=== PATIENT | female | born 1950 | race Caucasian/White ===

== ENCOUNTER 2017-04-19 20:57 | Emergency (ER) | payer MEDICARE ==
[~2017-04-19] VITALS: Ht 162.6 cm; Wt 76.6 kg
[~2017-04-19 20:57] MED LIST: ASPIRIN325 M1 OR; ZESTRIL10 MG OR
[2017-04-19 22:55] LABS: HEMATOCRIT 41.3 % (37.0-47.0); HEMOGLOBIN 14.3 g/dl (12.0-16.0); IMMATURE GRANULOCYTES 0.3 % (0.0-1.0); MEAN CELL VOLUME 93.9 fL CALC (80.0-100.0); MEAN CORPUSCULAR HGB 32.5 pG CALC (26.0-32.0); MEAN CORPUSCULAR HGB CONC 34.6 g/L CALC (32.0-36.0); NEUT# 5.55 thou/uL (2.00-7.15); RED BLOOD COUNT 4.4 mill/uL (4.20-5.60); RED CELL DISTRI WIDTH 13.1 % (11.5-15.5)
[2017-04-19 22:57] LABS: URINE BILIRUBIN - DIPSTICK NEGATIVE (NEGATIVE); URINE BLOOD DIPSTICK NEGATIVE (NEGATIVE); URINE CLARITY CLEAR; URINE COLOR YELLOW; URINE GLUCOSE - DIPSTICK 250 mg/dL (NEGATIVE); URINE KETONE NEGATIVE (NEGATIVE); URINE NITRITE - DIPSTICK NEGATIVE (Negative); URINE PH 6.5 (4.5-8.0); URINE PROTEIN - DIPSTICK NEGATIVE (NEG-TRACE); URINE SPECIFIC GRAVITY <=1.005; URINE UROBILINOGEN - DIPSTICK 0.2 E.U./dL (0.2)
[2017-04-19 23:02] LABS: URINE LEUK ESTERASE SMALL (NEGATIVE)
[2017-04-19 23:09] LABS: ALBUMIN 4.8 g/dL (3.2-5.0); ALKALINE PHOSPHATASE 96 u/l (38-126); ANION GAP 16 (6-22 (CALC)); BILIRUBIN, TOTAL 0.3 mg/dL (0.0-1.4); BUN 22 mg/dL (8-23); BUN/CREATININE RATIO 20 (12-20 (CALC)); CALCIUM 10.3 mg/dL (8.4-10.2); CARBON DIOXIDE 28 mmol/l (22-30); CHLORIDE 88 mmol/l (95-108); CREATININE 1.2 mg/dL (0.5-1.0); GFR 45 ML/MIN (>=60 (CALC)); GFR FOR AFR.AMER. 54 ML/MIN (>=60 (CALC)); GLUCOSE 199 mg/dL (82-115); POTASSIUM 4.6 mmol/l (3.5-5.1); SGOT/AST 26 u/l (9-36); SGPT/ALT 30 u/l (11-66); SODIUM 128 mmol/l (137-146); TOTAL PROTEIN 7.7 g/dL (6.3-8.2)
[2017-04-19 23:10] LABS: URINE RBC 0-2 RBC/hpf (0-5); URINE SQUAMOUS EPITHELIAL CELL FEW EPI/hpf (0-FEW)
[2017-04-19 23:21] LABS: MYOGLOBIN 55 ng/mL (0 - 62)
[2017-04-20] MEDS ORDERED: ANTIVERT PO (00:54)
[2017-04-20 01:07] VITALS: BP 166/77
== END 2017-04-20 01:00 | disposition home or self-care (01) ==
LOC: ED 20:57
PROVIDERS: Emergency Medicine
DX: R42 Dizziness and giddiness (principal); E87.1 Hypo-osmolality and hyponatremia; N28.9 Disorder of kidney and ureter, unspecified; E11.65 Type 2 diabetes mellitus with hyperglycemia; I10 Essential (primary) hypertension; M10.9 Gout, unspecified; F17.290 Nicotine dependence, other tobacco product, uncomplicated; R20.0 Anesthesia of skin; Z79.84 Long term (current) use of oral hypoglycemic drugs

== ENCOUNTER 2021-04-07 21:55 | Observation (INO) | payer MEDICARE, MEDICAID ==
[~2021-04-07] VITALS: Ht 162.6 cm; Wt 62.0 kg
[~2021-04-07 21:55] MED LIST changes: +ANTIVERT PO
--- NOTE | 2021-04-07 22:10 | NUR ---
PT AND FAMILY AMBULATE TO TX RM 10 W/OUT INCIDENT. PT MAINTAINS STEADY GAIT AND DENIES ANY DIFFICULTY WITH MOVING EXTREMITIES. PT STATES SHE HAS BEEN DIZZY "ON AND OFF" FOR MONTHS. PT STATES SHE THOUGHT HER B/S MAY BE LOW SO SHE HAD 2 GLASSES OF ORANGE JUICE. MD NOTIFIED AND AT BEDSIDE FOR EVALUATION.
--- NOTE | 2021-04-07 22:20 | NUR ---
PT REMAINS STABLE WITH RESTAURANT GENERAL MANAGER IN PLACE. ANSWERS ALL QUESTIONS WITH OUT INCIDENT
[2021-04-07 22:33] LABS: HEMATOCRIT 37.4 % (37.0-47.0); HEMOGLOBIN 12.8 g/dl (12.0-16.0); IMMATURE GRANULOCYTES 0.3 % (0.0-5.0); MEAN CELL VOLUME 96.1 fL CALC (80.0-100.0); MEAN CORPUSCULAR HGB 32.9 pG CALC (26.0-32.0); MEAN CORPUSCULAR HGB CONC 34.2 g/dL CAL (32.0-36.0); NEUT# 6.85 thou/uL (2.00-7.15); RED BLOOD COUNT 3.89 mill/uL (4.20-5.60); RED CELL DISTRI WIDTH 13.3 % (11.5-15.5)
[2021-04-07 22:54] LABS: ALBUMIN 4.6 g/dL (3.2-5.0); ALKALINE PHOSPHATASE 70 u/l (38-126); BUN 15 mg/dL (8-23); BUN/CREATININE RATIO 21 (12-20 (CALC)); CARBON DIOXIDE 28 mmol/l (22-30); CHLORIDE 83 mmol/l (95-108); CREATININE 0.7 mg/dL (0.5-1.0); GFR > 60 ML/MIN (>=60 (CALC)); GFR FOR AFR.AMER. > 60 ML/MIN (>=60 (CALC)); POTASSIUM 4.1 mmol/l (3.5-5.1); SGOT/AST 30 u/l (9-36); TOTAL PROTEIN 7.9 g/dL (6.3-8.2)
[2021-04-07 22:57] LABS: ANION GAP 15 (6-22 (CALC)); BILIRUBIN, TOTAL 0.6 mg/dL (0.0-1.4); SODIUM 122 mmol/l (137-146)
--- NOTE | 2021-04-07 23:01 | NUR ---
PATIENT RETURNED FROM CT SCAN. MEAL PPROVIDED.
[2021-04-07] MEDS ORDERED: NORVASC5 M1 PO (23:04)
[2021-04-07] MEDS ORDERED: GLIPIZIDE ER5 MG PO (23:05)
[2021-04-07 23:06] LABS: MYOGLOBIN 80 ng/mL (0 - 62)
[2021-04-07] MEDS ORDERED: ALLOPURINOL100 MG PO (23:06)
[2021-04-07] MEDS ORDERED: CRESTOR10 MG PO (23:07)
[2021-04-07] MEDS ORDERED: LEVOTHYROXINE25 MC1 PO (23:08)
[2021-04-07] MEDS ORDERED: LISINOP/HCTZ1 TA1 PO (23:09)
[2021-04-07] MEDS ORDERED: METFORMIN500 M2 PO (23:09)
[2021-04-07] MEDS ORDERED: POT CHLORIDE20 ME3 PO (23:10)
--- NOTE | 2021-04-08 00:16 | NUR ---
PATIENT AND FAMILY AT BEDSIDE AGREES WITH PLAN FOR ADMIT
--- NOTE | 2021-04-08 00:46 | NUR ---
KOJO TO CALL BACK TO ER FOR REPORT
--- NOTE | 2021-04-08 00:52 | NUR ---
TELEPHONE REPORT RECEIVED FROM Lenora COX RN IN ED. ROOM 279 PREPARED TO RECEIVE PATIENT.
--- NOTE | 2021-04-08 00:56 | NUR ---
REPORT GIVEN TO KOJO. PATIENT BEING TRANSPORTED TO FLOOR BY THIS RN
--- NOTE | 2021-04-08 01:07 | NUR ---
PT ARRIVES TO UNIT VIA , ACCOMPANIED BY Lenora COX RN @ 0846. PT MADE COMFORTABLE AND ORIENTED TO ROOM BY Royal NICHOLSON CNA. BASELINE VS OBTAINED BY Royal NICHOLSON CNA.
[2021-04-08 01:08] VITALS: BP 154/65
--- NOTE | 2021-04-08 01:30 | NUR ---
ADMISSION AND ASSESMENT COMPLETED. FINGERSTICK GLUCOSE OBTAINED BY Royal NICHOLSON CNA IS 77mg/dl. ORANGE JUICE AND NUTRIGRAIN BAR PROVIDED. EXTRA PILLOW PROVIDED PER PTS REQUEST. PT DENIES ANY FURTHER NEEDS AT THIS TIME WHEN ASKED. PT ABLE TO MAKE NEEDS KNOWN AND AGREES TO DO SO. PLAN OF CARE REVIEWED, VERBALIZES UNDERSTANDING. CALL CASTRO WITHIN REACH, PT AGREES TO CALL PRN. BED LOCKED IN LOW POSITION WITH BEDRAILS UP X2.
[2021-04-08 04:00] VITALS: BP 116/58
--- NOTE | 2021-04-08 05:02 | NUR ---
Edith ELIZONDO CHEMICAL PROCESSING SUPERVISOR AT BEDSIDE TO COLLECT AM LABS.
[2021-04-08 05:59] LABS: ANION GAP 11 (6-22 (CALC)); BUN 11 mg/dL (8-23); BUN/CREATININE RATIO 20 (12-20 (CALC)); CARBON DIOXIDE 28 mmol/l (22-30); CHLORIDE 92 mmol/l (95-108); CREATININE 0.6 mg/dL (0.5-1.0); GFR > 60 ML/MIN (>=60 (CALC)); GFR FOR AFR.AMER. > 60 ML/MIN (>=60 (CALC)); SODIUM 126 mmol/l (137-146)
--- NOTE | 2021-04-08 07:00 | NUR ---
RECIEVED REPORT FROM BHASKAR VARMA
[2021-04-08 07:10] VITALS: BP 127/52
--- NOTE | 2021-04-08 07:20 | NUR ---
PT RESTING IN SEMI FOWLERS POSITION. PT IS A/O X3. ASSESSMENT AND VITALS COMPLETED. BP 127/52, HR 64, O2 96% ON ROOM AIR. RESPIRATIONS ARE EVEN AND UNLABORED WITH NO DISTRESS NOTED. LUNG SOUNDS ARE CLEAR. HEART RHYTHM IS NORMAL. BOWEL SOUNDS ARE ACTIVE. RADIAL AND PEDAL PULSES STRONG. #20G IN LAC INFUSING WITH IVF PER ORDER, SITE REMAINS HEALTHY AND PATENT. SKIN INTACT. PT DENIES OF ANY PAINS OR DISCOMFORTS AT THIS TIME. PT REQUEST TO GO HOME TODAY. ALL SAFETY PRECAUTIONS ARE IN PLACE WITH CALL LIGHT IN REACH. WILL CONTINUE TO MONITOR.
[2021-04-08] MEDS ORDERED: GLIPIZIDE5 M2 PO (07:29)
--- NOTE | 2021-04-08 08:38 | NUR ---
REASSESSMENT OF GLUCOSE AFTER BREAKFAST RESULTING IN 143.
--- NOTE | 2021-04-08 09:11 | NUR ---
ASHLEY,ANRP AT BEDSIDE
[2021-04-08 09:26] LABS: URINE BILIRUBIN - DIPSTICK NEGATIVE (NEGATIVE); URINE BLOOD DIPSTICK NEGATIVE (NEGATIVE); URINE COLOR YELLOW; URINE GLUCOSE - DIPSTICK NEGATIVE (NEGATIVE); URINE KETONE NEGATIVE (NEGATIVE); URINE LEUK ESTERASE NEGATIVE (NEGATIVE); URINE PH 7.5 (4.5-8.0); URINE PROTEIN - DIPSTICK NEGATIVE (NEG-TRACE); URINE UROBILINOGEN - DIPSTICK 0.2 E.U./dL (0.2)
[2021-04-08 09:27] LABS: URINE NITRITE - DIPSTICK NEGATIVE (Negative)
[2021-04-08 09:40] VITALS: BP 128/59
--- NOTE | 2021-04-08 09:49 | NUR ---
GRANDDAUGHTER CALLED REQUESTING UPDATE. PASSCODE PROVIDED. ROLL TABLE OPERATOR INFORMED THAT PT IS SOMETIMES FORGETFUL.
--- NOTE | 2021-04-08 11:41 | NUR ---
PT SLEEPING IN LOW FOWLERS POSITION. RESPIRATIONS ARE EVEN AND UNLABORED WITH NO DISTRESS NOTED ON ROOM AIR.#20G IN LAC INFUSING WITH IVF PER ORDER, SITE REMAINS HEALTHY AND PATENT.NO SIGNS OF ANY PAINS OR DISCOMFORTS. ACCUCHECK REUSLTING IN 129. ALL SAFETY PRECAUTIONS ARE IN PLACE WITH CALL LIGHT IN REACH. WILL CONTINUE TO MONITOR.
--- NOTE | 2021-04-08 12:17 | NUR ---
DR TRACY AT BEDSIDE
--- NOTE | 2021-04-08 13:30 | NUR ---
VISITOR AT BEDSIDE
[2021-04-08 15:37] VITALS: BP 119/60
--- NOTE | 2021-04-08 16:07 | NUR ---
PT RESTING IN SEMI FOWLERS POSITION. RESPIRATIONS ARE EVEN AND UNLABORED WITH NO DISTRESS NOTED. #20G IN LAC INFUSING WITH IVF @80ML/HR, SITE REMAINS HEALTHY AND PATENT. PT DENIES OF ANY PAINS OR NEEDS AT THIS TIME. ALL SAFETY PRECAUTIONS ARE IN PLACE WITH CALL LIGHT IN REACH. WILL CONTINUE TO MONITOR.
[2021-04-08 19:35] VITALS: BP 126/69
--- NOTE | 2021-04-08 19:35 | NUR ---
PT AWAKE WITH LIGHTS ON TV OFF. NO S/O DISTRESS. ASSESSMENT COMPLETED AT THIS TIME, PT DENIES ANY OTHER NEEDS FOR COMFORT AT THIS TIME. ENCOURAGED HER TO CALL NEEDS ARISE, VERBALIZED UNDERSTANDING, CALL LIGHT W/IN REACH.
--- NOTE | 2021-04-08 21:15 | NUR ---
PT MEDICATED ORDERS PROVIDE, PT IS UP WALKING AROUND THE ROOM TRYING TO CLOSE BLINDS, ASSISTED MUCH POSSIBLE. PT DENIES ANY OTHER NEEDS AT THIS TIME. ENCOURAGED HER TO CALL NEEDS ARISE, VERBALIZED UNDERSTANDING.
[2021-04-09 04:00] VITALS: BP 123/71
--- NOTE | 2021-04-09 04:40 | NUR ---
LAB WAS JUST IN WITH PT, LEAVING ROOM NOW. PT AWAKE, DENIES ANY DISTRESSES OR NEEDS. IVF REPLENISHED AT THIS TIME. CALL LIGHT AT SIDE AND PT ENCOURAGED TO CALL NEEDS ARISE.
[2021-04-09 05:49] LABS: HEMATOCRIT 34.6 % (37.0-47.0); HEMOGLOBIN 11.7 g/dl (12.0-16.0); MEAN CELL VOLUME 96.6 fL CALC (80.0-100.0); MEAN CORPUSCULAR HGB 32.7 pG CALC (26.0-32.0); MEAN CORPUSCULAR HGB CONC 33.8 g/dL CAL (32.0-36.0); RED BLOOD COUNT 3.58 mill/uL (4.20-5.60); RED CELL DISTRI WIDTH 13.6 % (11.5-15.5)
[2021-04-09 06:00] LABS: ANION GAP 11 (6-22 (CALC)); BUN 15 mg/dL (8-23); BUN/CREATININE RATIO 29 (12-20 (CALC)); CARBON DIOXIDE 25 mmol/l (22-30); CHLORIDE 96 mmol/l (95-108); CREATININE 0.5 mg/dL (0.5-1.0); GFR > 60 ML/MIN (>=60 (CALC)); GFR FOR AFR.AMER. > 60 ML/MIN (>=60 (CALC)); MAGNESIUM 1.7 mg/dL (1.6-2.3); POTASSIUM 4.3 mmol/l (3.5-5.1); SODIUM 128 mmol/l (137-146)
--- NOTE | 2021-04-09 07:00 | NUR ---
RECIEVED REPORT FROM BHASKAR GAMBINO
[2021-04-09 07:24] VITALS: BP 128/63
--- NOTE | 2021-04-09 07:24 | NUR ---
PT RESTING IN SEMI FOWLERS POSITION. PT IS A/O X3. ASSESSMENT AND VITALS COMPLETED. BP 128/63, HR 69, O2 96% ON ROOM AIR. REPSIRATIONS ARE EVEN AND UNLABORED ON ROOM AIR. LUNG SOUNDS ARE CLEAR. HEART RHYTHM IS NORMAL. BOWEL SOUNDS ARE ACTIVE. #20G IN LAC INFUSING WITH IVF @80 ML/HR, SITE REMAINS HEALTHY AND PATENT. SKIN INTACT. PT DENIES OF ANY PAINS OR DISCOMFORTS. ALL SAFETY PRECAUTIONS ARE IN PLACE WITH CALL LIGHT IN REACH. ALL SAFETY PRECAUTIONS ARE IN PLACE WITH CALL LIGHT IN REACH. ENCOURAGED PT TO CALL FOR ASSISTNACE. WILL CONTINUE TO MONITOR.
[2021-04-09 08:43] VITALS: BP 128/63
[2021-04-09] MEDS ORDERED: COZAAR50 MG PO (09:18)
--- NOTE | 2021-04-09 09:40 | NUR ---
DR TRACY AT BEDSIDE
--- NOTE | 2021-04-09 10:36 | NUR ---
PT AND GRANDDAUGHTER EDUCATED ON D/C INSTRUCTIONS. BOTH VERBALIZED UNDERSTANDING. #20G LAC REMOVED WITH CATHATER STILL INTACT. PT TOLERARED WELL. PT AND GRANDAUGHTER EXPRESSED NO QUESTIONS OR CONCERNS. WILL CONTINUE TO MONITOR.
--- NOTE | 2021-04-09 10:49 | NUR ---
Discharge instructions given. Patient verbalizes understanding of same. Discharged in stable condition via Wheelchair to Home with staff. All belongings sent with pt. PT DC HOME VIA WHEELCHAIR ACCOMPAINED BY GIORGIO MORENO IN STABLE CONDITION. PT DC HOME WITH ALL BELONINGS AND DC INSTRUCTIONS.
== END 2021-04-09 10:44 | disposition home or self-care (01) ==
LOC: ED 21:55 → ED-I 23:16 → ED 23:29 → MS2 23:30
PROVIDERS: Family Medicine; Nurse Practitioner; ADMIT Internal Medicine; ATTEND Internal Medicine
DX: E87.1 Hypo-osmolality and hyponatremia (principal); E11.649 Type 2 diabetes mellitus with hypoglycemia without coma; I10 Essential (primary) hypertension; E03.9 Hypothyroidism, unspecified; E78.5 Hyperlipidemia, unspecified; M10.9 Gout, unspecified; Z79.84 Long term (current) use of oral hypoglycemic drugs; Z91.11 Patient's noncompliance with dietary regimen; Z87.891 Personal history of nicotine dependence; Z20.822 Contact with and (suspected) exposure to COVID-19
CPT/HCPCS: G0378; J1650

== ENCOUNTER 2021-11-30 09:27 | Emergency (ER) | payer MEDICARE, MEDICAID ==
[~2021-11-30] VITALS: Ht 162.6 cm; Wt 62.3 kg
[~2021-11-30 09:27] MED LIST changes: +ALLOPURINOL100 MG PO; +COZAAR50 MG PO; +CRESTOR10 MG PO; +GLIPIZIDE ER5 MG PO; +GLIPIZIDE5 M2 PO; +LEVOTHYROXINE25 MC1 PO; +LISINOP/HCTZ1 TA1 PO; +METFORMIN500 M2 PO; +NORVASC5 M1 PO; +POT CHLORIDE20 ME3 PO
[2021-11-30 14:35] VITALS: BP 138/60
== END 2021-11-30 14:30 | disposition short-term general hospital (02) ==
LOC: ED 09:27
DX: S42.211A Unspecified displaced fracture of surgical neck of right humerus, initial encounter for closed fracture (principal); I10 Essential (primary) hypertension; E11.9 Type 2 diabetes mellitus without complications; F17.200 Nicotine dependence, unspecified, uncomplicated; W01.0XXA Fall on same level from slipping, tripping and stumbling without subsequent striking against object, initial encounter; Y92.009 Unspecified place in unspecified non-institutional (private) residence as the place of occurrence of the external cause; Z79.84 Long term (current) use of oral hypoglycemic drugs

== ENCOUNTER 2022-06-20 10:16 | Observation (INO) | payer MEDICARE, MEDICAID ==
[~2022-06-20] VITALS: Ht 162.6 cm; Wt 51.0 kg
[2022-06-20 10:24] VITALS: BP 195/88
[2022-06-20 11:03] LABS: HEMATOCRIT 41.2 % (37.0-47.0); HEMOGLOBIN 14.1 g/dl (12.0-16.0); IMMATURE GRANULOCYTES 0.5 % (0.0-5.0); MEAN CELL VOLUME 98.1 fL CALC (80.0-100.0); MEAN CORPUSCULAR HGB 33.6 pG CALC (26.0-32.0); MEAN CORPUSCULAR HGB CONC 34.2 g/dL CAL (32.0-36.0); NEUT# 8.57 thou/uL (2.00-7.15); RED BLOOD COUNT 4.2 mill/uL (4.20-5.60); RED CELL DISTRI WIDTH 13.7 % (11.5-15.5)
[2022-06-20 11:31] LABS: ACT PARTIAL THROMBO TIME 26.3 SECONDS (20.0-32.5); INTERNATIONAL NORMALIZED RATIO 0.9 RATIO (0.7-1.3); PROTHROMBIN TIME 9.8 SECONDS (9.0-12.5)
[2022-06-20 11:33] LABS: ALBUMIN 4.4 g/dL (3.2-5.0); ALKALINE PHOSPHATASE 89 u/l (38-126); BILIRUBIN, TOTAL 0.6 mg/dL (0.0-1.4); BUN 10 mg/dL (8-23); BUN/CREATININE RATIO 20 (12-20 (CALC)); CHLORIDE 91 mmol/l (95-108); CREATININE 0.5 mg/dL (0.5-1.0); GFR FOR AFR.AMER. > 60 ML/MIN (>=60 (CALC)); GFR OTHER RACES > 60 ML/MIN (>=60 (CALC)); MAGNESIUM 1.4 mg/dL (1.6-2.3); POTASSIUM 3.5 mmol/l (3.5-5.1); SGOT/AST 26 u/l (9-36)
[2022-06-20 11:35] LABS: ANION GAP 11 (6-22 (CALC)); CARBON DIOXIDE 29 mmol/l (22-30); SODIUM 127 mmol/l (137-146)
[2022-06-20 11:35] LABS: URINE BILIRUBIN - DIPSTICK NEGATIVE (NEGATIVE); URINE BLOOD DIPSTICK MODERATE (NEGATIVE); URINE COLOR YELLOW; URINE GLUCOSE - DIPSTICK 250 mg/dL (NEGATIVE); URINE KETONE NEGATIVE (NEGATIVE); URINE PROTEIN - DIPSTICK NEGATIVE (NEG-TRACE); URINE SPECIFIC GRAVITY <=1.005
[2022-06-20 11:36] LABS: URINE LEUK ESTERASE SMALL (NEGATIVE); URINE NITRITE - DIPSTICK NEGATIVE (Negative)
[2022-06-20 11:43] LABS: URINE BACTERIA MODERATE hpf; URINE SQUAMOUS EPITHELIAL CELL FEW EPI/hpf (0-FEW); URINE WBC 20-50 WBC/hpf (0-5)
[2022-06-20 14:54] VITALS: BP 148/78
[2022-06-20 19:05] VITALS: BP 138/58
[2022-06-21 00:05] VITALS: BP 121/48
[2022-06-21 04:10] VITALS: BP 121/48
[2022-06-21 05:48] LABS: HEMATOCRIT 37.1 % (37.0-47.0); HEMOGLOBIN 12.7 g/dl (12.0-16.0); IMMATURE GRANULOCYTES 0.2 % (0.0-5.0); MEAN CELL VOLUME 97.9 fL CALC (80.0-100.0); MEAN CORPUSCULAR HGB 33.5 pG CALC (26.0-32.0); MEAN CORPUSCULAR HGB CONC 34.2 g/dL CAL (32.0-36.0); NEUT# 11.5 thou/uL (2.00-7.15); RED BLOOD COUNT 3.79 mill/uL (4.20-5.60); RED CELL DISTRI WIDTH 14.1 % (11.5-15.5)
[2022-06-21 06:24] LABS: ALKALINE PHOSPHATASE 53 u/l (38-126); ANION GAP 13 (6-22 (CALC)); BILIRUBIN, TOTAL 0.4 mg/dL (0.0-1.4); BUN 18 mg/dL (8-23); BUN/CREATININE RATIO 30 (12-20 (CALC)); CARBON DIOXIDE 27 mmol/l (22-30); CHLORIDE 94 mmol/l (95-108); CREATININE 0.6 mg/dL (0.5-1.0); GFR FOR AFR.AMER. > 60 ML/MIN (>=60 (CALC)); GFR OTHER RACES > 60 ML/MIN (>=60 (CALC)); POTASSIUM 3.5 mmol/l (3.5-5.1); SGOT/AST 20 u/l (9-36); SODIUM 130 mmol/l (137-146); TOTAL PROTEIN 5.6 g/dL (6.3-8.2)
[2022-06-21 06:34] VITALS: BP 131/52
[2022-06-21 06:40] LABS: TSH, 3RD GENERATION 0.42 uIU/mL (0.47 - 4.68)
[2022-06-21 06:43] LABS: ALBUMIN 3.4 g/dL (3.2-5.0); MAGNESIUM 1.8 mg/dL (1.6-2.3)
[2022-06-21] MEDS ORDERED: MECLIZINE12.5 M1 PO (10:53)
[2022-06-21] MEDS ORDERED: AZO CRANBERY UR1 CAP PO (10:54)
[2022-06-21] MEDS ORDERED: K-TAB20 MEQ PO (10:54)
[2022-06-21] MEDS ORDERED: LISINOP/HCTZ1 TA1 PO (12:09)
[2022-06-21 15:05] VITALS: BP 155/68
[2022-06-21 16:06] VITALS: BP 155/68
[2022-06-21 19:05] VITALS: BP 177/71
[2022-06-22 00:44] VITALS: BP 150/66
[2022-06-22 04:25] VITALS: BP 154/63
[2022-06-22 06:24] LABS: HEMATOCRIT 35.5 % (37.0-47.0); HEMOGLOBIN 12.2 g/dl (12.0-16.0); IMMATURE GRANULOCYTES 0.1 % (0.0-5.0); MEAN CELL VOLUME 98.9 fL CALC (80.0-100.0); MEAN CORPUSCULAR HGB CONC 34.4 g/dL CAL (32.0-36.0); NEUT# 5.49 thou/uL (2.00-7.15); RED BLOOD COUNT 3.59 mill/uL (4.20-5.60); RED CELL DISTRI WIDTH 14.1 % (11.5-15.5)
[2022-06-22 06:28] VITALS: BP 152/64
[2022-06-22 06:49] LABS: ANION GAP 9 (6-22 (CALC)); BUN 10 mg/dL (8-23); BUN/CREATININE RATIO 25 (12-20 (CALC)); CARBON DIOXIDE 31 mmol/l (22-30); CHLORIDE 99 mmol/l (95-108); CREATININE 0.4 mg/dL (0.5-1.0); GFR FOR AFR.AMER. > 60 ML/MIN (>=60 (CALC)); GFR OTHER RACES > 60 ML/MIN (>=60 (CALC)); MAGNESIUM 1.7 mg/dL (1.6-2.3); SODIUM 136 mmol/l (137-146)
[2022-06-22 08:00] VITALS: BP 152/64
[2022-06-22] MEDS ORDERED: AMLODIPINE BESYL5 MG PO (10:22)
[2022-06-22] MEDS ORDERED: KEFLEX500 MG PO (10:23)
[2022-06-22] MEDS ORDERED: COZAAR25 MG PO (10:24)
[2022-06-22 10:30] VITALS: BP 173/75
[2022-06-22 10:33] VITALS: BP 173/75
== END 2022-06-22 12:00 | disposition home health service (06) ==
LOC: ED 10:16 → ED-I 12:50 → ED 13:08 → MS2 13:09
PROVIDERS: Internal Medicine; Nurse Practitioner; ADMIT Internal Medicine; ATTEND Internal Medicine
DX: N39.0 Urinary tract infection, site not specified (principal); R33.9 Retention of urine, unspecified; E87.1 Hypo-osmolality and hyponatremia; E83.42 Hypomagnesemia; I10 Essential (primary) hypertension; E11.9 Type 2 diabetes mellitus without complications; M10.9 Gout, unspecified; E03.9 Hypothyroidism, unspecified; E78.5 Hyperlipidemia, unspecified; B96.20 Unspecified Escherichia coli [E. coli] as the cause of diseases classified elsewhere; Z86.73 Personal history of transient ischemic attack (TIA), and cerebral infarction without residual deficits; Z87.891 Personal history of nicotine dependence; Z20.822 Contact with and (suspected) exposure to COVID-19; Z79.84 Long term (current) use of oral hypoglycemic drugs
CPT/HCPCS: J1650; J3475

== ENCOUNTER 2023-02-23 15:12 | Emergency (ER) | payer MEDICARE, MEDICAID ==
[2023-02-23] VITALS (8 sets, daily range): BP systolic 160–182; BP diastolic 65–76
[~2023-02-23] VITALS: Ht 162.6 cm; Wt 56.0 kg
[~2023-02-23 15:12] MED LIST changes: +AMLODIPINE BESYL5 MG PO; +AZO CRANBERY UR1 CAP PO; +COZAAR25 MG PO; +K-TAB20 MEQ PO; +KEFLEX500 MG PO; +MECLIZINE12.5 M1 PO
[2023-02-23 15:40] LABS: EOS% 4.3 % (0-8); HEMATOCRIT 38.6 % (37.0-47.0); HEMOGLOBIN 13.2 g/dl (12.0-16.0); IMMATURE GRANULOCYTES 0.5 % (0.0-5.0); LYMPH% 34.1 % (15-41); MEAN CORPUSCULAR HGB 32.8 pG CALC (26.0-32.0); MEAN CORPUSCULAR HGB CONC 34.2 g/dL CAL (32.0-36.0); MONO% 8.6 % (2-13); NEUT# 4.87 thou/uL (2.00-7.15); NEUT% 51.5 % (42-76); RED BLOOD COUNT 4.02 mill/uL (4.20-5.60); RED CELL DISTRI WIDTH 13.3 % (11.5-15.5)
[2023-02-23 15:57] LABS: BUN 9 mg/dL (8-23); BUN/CREATININE RATIO 15 (12-20 (CALC)); CARBON DIOXIDE 31 mmol/l (22-30); CHLORIDE 90 mmol/l (95-108); CREATININE 0.6 mg/dL (0.5-1.0); GFR FOR AFR.AMER. > 60 ML/MIN (>=60 (CALC)); GFR OTHER RACES > 60 ML/MIN (>=60 (CALC)); SGOT/AST 35 u/l (9-36)
[2023-02-23 16:07] LABS: ALBUMIN 4.7 g/dL (3.2-5.0); ALKALINE PHOSPHATASE 81 u/l (38-126); ANION GAP 12 (6-22 (CALC)); BILIRUBIN, TOTAL 0.2 mg/dL (0.02-1.3); POTASSIUM 4.1 mmol/l (3.5-5.1); SODIUM 129 mmol/l (137-146); TOTAL PROTEIN 7.6 g/dL (6.3-8.2)
== END 2023-02-23 17:39 | disposition home or self-care (01) ==
LOC: ED 15:12
PROVIDERS: Family Medicine
PROC: 0HQ0XZZ Repair Scalp Skin, External Approach (ICD-10-PCS; principal; 2023-02-23)
DX: S01.01XA Laceration without foreign body of scalp, initial encounter (principal); I10 Essential (primary) hypertension; E11.9 Type 2 diabetes mellitus without complications; F17.200 Nicotine dependence, unspecified, uncomplicated; W18.30XA Fall on same level, unspecified, initial encounter; Y92.009 Unspecified place in unspecified non-institutional (private) residence as the place of occurrence of the external cause; Z79.84 Long term (current) use of oral hypoglycemic drugs

== ENCOUNTER 2023-03-02 14:30 | Emergency (ER) | payer MEDICARE, MEDICAID ==
[~2023-03-02] VITALS: Ht 162.6 cm; Wt 57.0 kg
== END 2023-03-02 15:38 | disposition home or self-care (01) ==
LOC: ED 14:30
DX: S01.01XD Laceration without foreign body of scalp, subsequent encounter (principal); I10 Essential (primary) hypertension; E11.9 Type 2 diabetes mellitus without complications; F17.200 Nicotine dependence, unspecified, uncomplicated; X58.XXXD Exposure to other specified factors, subsequent encounter; Z79.84 Long term (current) use of oral hypoglycemic drugs